=== PATIENT | female | born 1925 | race Caucasian/White ===

== ENCOUNTER 2017-01-30 12:25 | Emergency (ER) | payer OTHER, MEDICARE ==
[~2017-01-30] VITALS: Ht 160 cm; Wt 80.3 kg
[~2017-01-30 12:25] MED LIST: ALBUTEROL 3 ML3 ML INH; AMOX-CLAV 200-1 EACH PO; BISACODYL10 MG PR; CARVEDILOL25 M1 PO; COREG 12.5MG12.5 MG PO; COREG 25 MG TAB25 MG PO; DIAMOX125 MG PO; ELIQUIS2.5 MG PO; ELIQUIS5 MG PO; ENTRESTO 49 MG1 EACH PO; HYDRODIURIL 112.5 M1 PO; LABETALOL HYDR200 MG PO; LASIX40 M1 PO; LASIX40 MG PO; LOSARTAN POTAS100 MG PO; LOSARTAN POTASS25 M1 PO; MYCOSTATIN POWD15 GM TOP; OCUVITE SOFTGE1 EACH PO; PRINIVIL5 MG PO; SIMVASTATIN40 M1 PO; Senokot S PO; VITAMIN D1000 IU PO; XARELTO15 M1 PO; ZITHROMAX500 M2 PO
--- NOTE | 2017-01-30 12:51 | ED GI/GU/ABDOMINAL COMPLAINT ---
History of Present Illness General Chief Complaint: Female Urogenital Problems Stated Complaint: VAGINAL BLEEDING Source: patient, family Exam Limitations: no limitations Vital Signs & Intake/Output Vital Signs & Intake/Output Vital Signs Date Time Temp Pulse Resp B/P B/P Pulse O2 O2 Flow FiO2 Mean Ox Delivery Rate 01/30 1601 97.0 72 17 138/76 97 Room Air 01/30 1233 96.8 84 18 142/85 96 Room Air Allergies Coded Allergies: NO KNOWN ALLERGIES (07/30/14) Reconcile Medications Carvedilol 25 MG TABLET 1 TAB PO BID HEART (Reported) Furosemide (Lasix) 40 MG TABLET 1 TAB PO DAILY WATER RETENTION (Reported) Losartan Potassium 50 MG TABLET 1 TAB PO DAILY HEART (Reported) Rivaroxaban (Xarelto) 15 MG TABLET 1 TAB PO QPM BLOOD THINNER (Reported) Simvastatin (Simvastatin*) 40 MG TABLET 1 TAB PO QPM CHOLESTEROL (Reported) Vit C/Vit E/Lutein/Min/[place]-3 (Ocuvite Softgel) (Unknown Strength) CAPSULE 1 CAP PO DAILY SUPPLEMENT (Reported) Triage Note: PT STATES SHE BEGAN HAVING VAGINAL BLEEDING FOR THE PAST 2 DAYS. PT STATES THE BLEEDING HAS STOPPED TODAY. PT STATES SHE WENT THROUGH ONE PAD A DAY FOR THE PAST FEW DAYS. PT STATES BLOOD WAS DARK RED. Triage Nurses Notes Reviewed? yes ? N Is pt currently ? No HPI: Past 2 days patient has noticed blood in her underwear and then on her pad. Patient does take as her also for A. fib. Patient has no pain. Patient is unsure whether the vaginal area or the urine. She states today that the blood is much less than it was yesterday but she told her family about it and they wanted her to get checked out. Patient states that she has never seen a smoked meat preparer because she has never been sexually active. Patient has never seen a urologist. Patient's brother did pass away from bladder cancer. Past History Travel History Traveled to [place] past 21 day No Medical History Any Pertinent Medical History? see below for history Neurological: NONE EENT: NONE Cardiovascular: AFIB, aortic stenosis, hypertension Respiratory: NONE Gastrointestinal: NONE Hepatic: NONE Renal: NONE Musculoskeletal: NONE Psychiatric: NONE Endocrine: NONE Blood Disorders: NONE Cancer(s): NONE INVOICE CLERK/Reproductive: NONE History of MRSA: No History of VRE: No History of CDIFF: No Pneumonia Vaccine: 08/04/13 Influenza Vaccine: 04/04/16 Surgical History Surgical History: BILATERAL HIP REPLACEMENT Psychosocial History Who do you live with Patient/Self What is your primary language Slovak Tobacco Use: Never used ETOH Use: occasional use Illicit Drug Use: denies illicit drug use Family History Family History, If Any: BROTHER FH: cancer Hx Contributory? Yes Review of Systems Review of Systems Constitutional: Reports: no symptoms. EENTM: Reports: no symptoms. Respiratory: Reports: no symptoms. Cardiovascular: Reports: no symptoms. GI: Reports: no symptoms. Genitourinary: Reports: see HPI. Musculoskeletal: Reports: no symptoms. Skin: Reports: no symptoms. Neurological/Psychological: Reports: no symptoms. Hematologic/Endocrine: Reports: no symptoms. Immunologic/Allergic: Reports: no symptoms. All Other Systems: Reviewed and Negative Physical Exam Physical Exam General Appearance: well developed/nourished, alert, awake Head: atraumatic, normal appearance Eyes: Bilateral: PERRL, EOMI. Ears, Nose, Throat, Mouth: hearing grossly normal, moist mucous membrane Neck: normal inspection, supple, full range of motion Respiratory: normal breath sounds, chest non-tender, no respiratory distress, lungs clear Cardiovascular: regular rate/rhythm, normal peripheral pulses, irregularly irregular Gastrointestinal: normal bowel sounds, soft, non-tender, no organomegaly Back: normal inspection, normal range of motion Extremities: normal range of motion Neurologic/Psych: no motor/sensory deficits, awake, alert, oriented x 3, normal gait, normal mood/affect Skin: intact, normal color, warm/dry Core Measures ACS in differential dx? No Severe Sepsis Present: No Septic Shock Present: No Progress Differential Diagnosis: kidney stone, UTI/pyelo, CANCER Plan of Care: Orders Procedure Date/time Status Straight Cath 01/30 1250 Active URINALYSIS 01/30 1250 Complete PARTIAL THROMBOPLASTIN TIME 01/30 1250 Complete PROTHROMBIN TIME 01/30 1250 Complete COMPREHENSIVE METABOLIC PANEL 01/30 1250 Complete CBC WITHOUT DIFFERENTIAL 01/30 1250 Complete Laboratory Tests 01/30/17 1307: Anion Gap 10, Estimated GFR 35 L, BUN/Creatinine Ratio 25.0, Glucose 100 H, Calcium 9.1, Total Bilirubin 0.8, AST 17, ALT 29, Alkaline Phosphatase 48, Total Protein 6.5, Albumin 4.0, Globulin 2.5, Albumin/Globulin Ratio 1.6, PT 14.3 H, INR 1.37 H, APTT 35, CBC w Diff NO MAN DIFF REQ, RBC 3.98 L, MCV 83.9, MCH 27.6, RDW 15.0 H, MPV 9.8, Gran % 69.9, Lymphocytes % 19.1 L, Monocytes % 8.4, Eosinophils % 2.1, Basophils % 0.5, Absolute Granulocytes 5.0, Absolute Lymphocytes 1.4, Absolute Monocytes 0.6, Absolute Eosinophils 0.1, Absolute Basophils 0, PUBS MCHC 32.8 L, Urine Color YEL, Urine Clarity HAZY H, Urine pH 6.5, Ur Specific [place] 1.010, Urine Protein TRACE H, Urine Ketones NEG, Urine Nitrite NEG, Urine Bilirubin NEG, Urine Urobilinogen 0.2, Ur Leukocyte Esterase SMALL H, Ur Microscopic SEDIMENT EXAMINED, Urine RBC >75 H, Urine WBC 3-5 H, Ur Epithelial Cells RARE, Urine Bacteria MANY H, Urine Hemoglobin LARGE H, Urine Glucose NEG Diagnostic Imaging: Viewed by Me: CT Scan. Discussed w/RAD: CT Scan. Radiology Impression: PATIENT: MIRTHA TRAVIS PRESENT AGE: 89 PATIENT ACCOUNT NO: [id number] : [birth year] LOCATION: [facility] ORDERING PHYSICIAN: THU PARHAM MD SERVICE DATE: 01/30/17 EXAM TYPE: CAT - CT ABD & PELVIS W/O IV CONTRAS EXAMINATION: CT ABDOMEN AND PELVIS WITHOUT CONTRAST CLINICAL INFORMATION: Hematuria COMPARISON: CT abdomen pelvis 07/30/2014 TECHNIQUE: Multidetector volumetric imaging was performed from the superior aspect of the liver through the pubic symphysis. Sagittal and coronal reformatted images were obtained on the technologist's workstation. DLP: 632.22 mGy-cm FINDINGS: LUNG BASES: Heart size enlarged. There is vascular calcification of coronary's. There is calcification of the aortic valve region and mitral valve annulus calcifications. Lung bases are clear. No pleural effusion. LIVER, GALLBLADDER, AND BILIARY TREE: The liver is normal in size, shape, and attenuation. No focal hepatic lesion or biliary ductal dilatation is present. Multiple calcified stones within the gallbladder measuring about a centimeter and half in size. No edema around the gallbladder. No bile duct dilatation. PANCREAS: Unremarkable. SPLEEN: Unremarkable. ADRENAL GLANDS: Unremarkable. KIDNEYS AND URETERS: 2.5 cm cortical cyst at the mid lower pole of right kidney. No renal or ureteral calculi. BLADDER: Partially obscured by streak artifact from both total hip replacement. GASTROINTESTINAL TRACT: Large volume of stool in the rectum sigmoid. At the level of the hips the rectum sigmoid has a diameter 7 cm. No bowel wall thickening or edema however. Moderate volume of stool throughout the remainder the colon. There are scattered diverticula but no diverticulitis. No bowel obstruction. Small bowel loops are normal. The appendix is normal. MESENTERY: Coarse calcifications right side of abdomen and right lower quadrant. No free air. No free fluid. No inflammatory change. ABDOMINAL WALL: No significant hernia is appreciated. LYMPH NODES: Normal. VASCULAR: Atherosclerotic vascular wall calcifications of aorta and major branch vessels of aorta. No aneurysm. PELVIC VISCERA: Uterus is anteverted. No adnexal abnormality. OSSEOUS STRUCTURES: Bilateral total hip replacement. There is marked degenerative change of spine with disc height narrowing vacuum disc phenomena endplate spurs and facet joint arthrosis at multiple levels. IMPRESSION: 1. Fecal impaction without bowel obstruction. 2. Cholelithiasis. No bile duct dilatation. 3. Cardiomegaly. 4. Bilateral total hip replacement. 5. Cortical cyst right kidney. No hydronephrosis or calculus. Bladder is partially obscured by streak artifact from bilateral total hip replacement. DICTATED BY: GABO HYATT MD DATE/TIME DICTATED:01/30/171540 HEALTH FACILITIES SURVEYOR:PORFIRIO DATE/TIME TRANSCRIBED:01/30/171540 CONFIDENTIAL, DO NOT COPY WITHOUT APPROPRIATE AUTHORIZATION. <Electronically signed in Other Vendor System> SIGNED BY: GABO HYATT MD 01/30/17 3353 Initial ED EKG: none Comments: Straight cath of her urine shows hematuria. Departure Departure Disposition: HOME OR SELF CARE Condition: Stable Clinical Impression Primary Impression: Hematuria Referrals: ANDERSON COWAN,AZAEL (PCP/Family) IVONE JENNINGS MD Additional Instructions: FOLLOW UP WITH DR. JENNINGS RETURN FOR ANY CONCERNS Departure Forms: Customer Survey General Discharge Information
[2017-01-30 13:22] LABS: ABSOLUTE BASOPHIL COUNT 0 /CUMM (0.0-0.2); ABSOLUTE EOSINOPHIL COUNT 0.1 /CUMM (0.0-0.7); ABSOLUTE LYMPH COUNT 1.4 /CUMM (1.2-3.4); ABSOLUTE MONOCYTE COUNT 0.6 /CUMM (0.10-0.60); BASOPHIL % 0.5 % (0.0-2.0); EOSINOPHIL % 2.1 % (0-5); GRANULOCYTE % 69.9 % (42.2-75.2); HEMATOCRIT 33.4 % (37-47); MEAN CORPUSCULAR HGB 27.6 PG (27.0-31.0); MEAN CORPUSCULAR HGB CONC 32.8 G/DL (33.0-37.0); MEAN CORPUSCULAR VOLUME 83.9 FL (81.0-99.0); MEAN PLATELET VOLUME 9.8 FL (7.4-10.4); PLATELET COUNT 168 /CUMM (130-400); RED BLOOD CELL CT 3.98 /CUMM (4.20-5.40); WHITE BLOOD CELL COUNT 7.1 /CUMM (4.8-10.8)
[2017-01-30 13:35] LABS: PT 14.3 SEC (9.4-12.5); PTT 35 SEC (25-37)
[2017-01-30] MEDS ORDERED: LOSARTAN POTASS50 M1 PO (14:19)
--- NOTE | 2017-01-30 15:54 | CT SCAN REPORT ---
EXAMINATION: CT ABDOMEN AND PELVIS WITHOUT CONTRAST CLINICAL INFORMATION: Hematuria COMPARISON: CT abdomen pelvis 07/30/2014 TECHNIQUE: Multidetector volumetric imaging was performed from the superior aspect of the liver through the pubic symphysis. Sagittal and coronal reformatted images were obtained on the technologist's workstation. DLP: 632.22 mGy-cm FINDINGS: LUNG BASES: Heart size enlarged. There is vascular calcification of coronary's. There is calcification of the aortic valve region and mitral valve annulus calcifications. Lung bases are clear. No pleural effusion. LIVER, GALLBLADDER, AND BILIARY TREE: The liver is normal in size, shape, and attenuation. No focal hepatic lesion or biliary ductal dilatation is present. Multiple calcified stones within the gallbladder measuring about a centimeter and half in size. No edema around the gallbladder. No bile duct dilatation. PANCREAS: Unremarkable. SPLEEN: Unremarkable. ADRENAL GLANDS: Unremarkable. KIDNEYS AND URETERS: 2.5 cm cortical cyst at the mid lower pole of right kidney. No renal or ureteral calculi. BLADDER: Partially obscured by streak artifact from both total hip replacement. GASTROINTESTINAL TRACT: Large volume of stool in the rectum sigmoid. At the level of the hips the rectum sigmoid has a diameter 7 cm. No bowel wall thickening or edema however. Moderate volume of stool throughout the remainder the colon. There are scattered diverticula but no diverticulitis. No bowel obstruction. Small bowel loops are normal. The appendix is normal. MESENTERY: Coarse calcifications right side of abdomen and right lower quadrant. No free air. No free fluid. No inflammatory change. ABDOMINAL WALL: No significant hernia is appreciated. LYMPH NODES: Normal. VASCULAR: Atherosclerotic vascular wall calcifications of aorta and major branch vessels of aorta. No aneurysm. PELVIC VISCERA: Uterus is anteverted. No adnexal abnormality. OSSEOUS STRUCTURES: Bilateral total hip replacement. There is marked degenerative change of spine with disc height narrowing vacuum disc phenomena endplate spurs and facet joint arthrosis at multiple levels. IMPRESSION: 1. Fecal impaction without bowel obstruction. 2. Cholelithiasis. No bile duct dilatation. 3. Cardiomegaly. 4. Bilateral total hip replacement. 5. Cortical cyst right kidney. No hydronephrosis or calculus. Bladder is partially obscured by streak artifact from bilateral total hip replacement.
[2017-01-30 16:01] VITALS: BP 138/76
== END 2017-01-30 16:10 ==
LOC: ERH 12:25
PROVIDERS: Emergency Medicine
DX: R31.9 Hematuria, unspecified (principal)
CPT/HCPCS: 74176; 81001